=== PATIENT | female | born 1935 | race Caucasian/White ===

== ENCOUNTER 2023-08-06 07:27 | Emergency (ER) | payer OTHER ==
[~2023-08-06] VITALS: Ht 165.1 cm; Wt 61.2 kg
[2023-08-06 07:33] VITALS: BP_SYST 159; PULSE 61; RESP 16; TEMP 96.8; O2SAT 98
[2023-08-06] MEDS ORDERED: D10W 250 ML IV SCH (07:45)
[2023-08-06 08:08] LABS: BASOPHILS # (AUTO) 0.1 K/uL (0.0-0.2); BASOPHILS % (AUTO) 0.4 % (0.0-2.0); EOSINOPHILS # (AUTO) 1.4 K/uL (0.0-0.4); EOSINOPHILS % (AUTO) 10.8 % (0.0-4.0); HEMATOCRIT 41.1 % (36-48); HEMOGLOBIN 13.1 g/dL (12.0-16.0); LYMPHOCYTES # (AUTO) 0.7 K/uL (1.0-5.5); LYMPHOCYTES % (AUTO) 5.2 % (20.5-51.5); MEAN CORPUSCULAR HEMOGLOBIN 29 pg (27-31); MEAN CORPUSCULAR HGB CONC 32 % (32-36); MEAN CORPUSCULAR VOLUME 92 fL (79.0-98.0); MONOCYTES # (AUTO) 0.8 K/uL (0.0-1.0); MONOCYTES % (AUTO) 6.5 % (1.7-9.3); NEUTROPHILS # (AUTO) 10.1 K/uL (1.8-7.7); NEUTROPHILS % (AUTO) 77.1 % (40.0-70.0); PLATELET COUNT (AUTO) 274 K/uL (130-430); RED BLOOD CELL COUNT(AUTO) 4.46 MIL/uL (4.2-6.2); RED CELL DISTRIBUTION WIDTH 14.5 % (9.0-15.0)
[2023-08-06 08:24] LABS: ANION GAP 5 (5-15); CALCIUM 9.4 mg/dL (8.4-11.0); CARBON DIOXIDE 30 mmol/L (23-29); CHLORIDE 99 mmol/L (98-107); CREATININE 1.03 mg/dL (0.55-1.30); GLUCOSE 115 mg/dL (74-106); POTASSIUM 3.9 mmol/L (3.5-5.1); SODIUM SERUM 134 mmol/L (136-145); UREA NITROGEN, BLOOD 25 mg/dL (8-21)
[2023-08-06 08:31] LABS: ALANINE AMINOTRANSFERASE 41 U/L (12-78); ASPARTATE AMINOTRANSFERASE 22 U/L (10-37); BILIRUBIN,DIRECT 0.2 mg/dL (0.0-0.3); TOTAL BILIRUBIN 0.6 mg/dL (0.0-1.0); TOTAL PROTEIN, SERUM 6.1 g/dL (6.4-8.3)
[2023-08-06 08:42] LABS: PROTHROMBIN TIME 10.6 SECS (9.5-12.5)
[2023-08-06 12:17] LABS: INFLUENZA TYPE A NEGATIVE (NEGATIVE); INFLUENZA TYPE B NEGATIVE (NEGATIVE)
[2023-08-06] MEDS ORDERED: AZIT-93 PO (13:12)
[2023-08-06] MEDS ORDERED: AUG875 PO (13:12)
[2023-08-06] MEDS ORDERED: AZITHROMYCIN 250 MG TABLET PO ONE (13:15)
[2023-08-06] MEDS ORDERED: AMOXICILLIN/POTASSIUM CLAV 875 MG TABLET PO ONE (13:15)
[2023-08-06] MEDS ORDERED: ACETAMINOPHEN 500 MG TABLET PO ONE (13:45)
[2023-08-06] MEDS ORDERED: KETOROLAC TROMETHAMINE 15 MG VIAL IVP ONE (13:45)
[2023-08-06 16:21] VITALS: BP_SYST 147; PULSE 63; RESP 16; TEMP 98.1; O2SAT 100
== END 2023-08-06 16:20 | disposition home or self-care (01) ==
LOC: SED 07:27
DX: E11.649 Type 2 diabetes mellitus with hypoglycemia without coma (principal); G30.9 Alzheimer's disease, unspecified; F02.80 Dementia in other diseases classified elsewhere, unspecified severity, without behavioral disturbance, psychotic disturbance, mood disturbance, and anxiety; Z79.899 Other long term (current) drug therapy; Z20.822 Contact with and (suspected) exposure to COVID-19
CPT/HCPCS: 99284; 71045; 87426; 80076; 80048; 82962; 85025; 85610; 85730; 87040; 84484; 36415; 93005; 83605; 87804 ×2; Q0144